=== PATIENT | female | born 1960 | race Two or more races ===

== ENCOUNTER 2020-03-27 02:08 | Emergency (ER) | payer MEDICAID ==
[~2020-03-27] VITALS: Ht 165.1 cm; Wt 63.5 kg
[~2020-03-27 02:08] MED LIST: ATOR40TA52 PO; BUSP10TA90 PO; CHOL4POW4 PO; DIPH-452 PO; SERT-160 PO
[2020-03-27] MEDS ORDERED: SODIUM CHLORIDE 0.9% 2,000 ML IV ONE (02:30)
[2020-03-27 02:43] LABS: Basophils # (auto) 0 10 ^3/uL (0-0.2); Basophils % (auto) 0.5 % (0.0-2.0); Eosinophils # (auto) 0.2 10 ^3/uL (0-0.8); Eosinophils % (auto) 2.5 % (0.0-7.0); Hematocrit 36.1 % (36.0-46.0); Lymphocytes # (auto) 2.4 10 ^3/uL (0.4-5.4); Lymphocytes % (auto) 36.1 % (10.0-50.0); Mean Corpuscular Hemoglobin 32.7 pg (28.0-32.0); Mean Corpuscular Hgb Conc. 33.3 g/dL (32.0-36.0); Mean Corpuscular Volume 98.3 fL (80.0-100.0); Monocytes # (auto) 0.6 10 ^3/uL (0-1.3); Monocytes % (auto) 8.9 % (0.0-12.0); Neutrophils # (auto) 3.5 10 ^3/uL (1.6-8.6); Nucleated Red Blood Cells % 0.1 %; Platelet Count (auto) 168 10^3/uL (140-450); Red Blood Cells 3.67 10^6/uL (4.0-5.20); Red Cell Distribution Width 13.8 % (11.8-14.3); White Blood Cell 6.7 10^3/uL (4.4-10.8)
[2020-03-27 03:00] LABS: Alanine Aminotransferase 294 U/L (13-56); Albumin 2.3 g/dL (3.4-5.0); Anion Gap 9 (5-15); Aspartate Aminotransferase 837 U/L (15-37); BUN/Creatinine Ratio 15.9; Blood Urea Nitrogen 10 mg/dL (7-18); Carbon Dioxide 17 mmol/L (21-32); Chloride 120 mmol/L (98-107); GFR African American 124 mL/min; GFR Non-African American 102 mL/min; Glucose 80 mg/dL (74-106); Magnesium 1.5 mg/dL (1.6-2.6); Sodium 146 mmol/L (136-145)
[2020-03-27 03:05] LABS: Alkaline Phosphatase 101 U/L (45-117); Bilirubin, Total 0.7 mg/dL (0.2-1.0); Total Protein 4.6 g/dL (6.4-8.2)
[2020-03-27 03:09] LABS: Calcium 5.7 mg/dL (8.5-10.1); Potassium 2.5 mmol/L (3.5-5.1)
[2020-03-27] MEDS ORDERED: POTASSIUM EFFERVESENT TAB 25 MEQ PO ONE (03:15)
[2020-03-27] MEDS ORDERED: POTASSIUM CHL 20MEQ/100ML 100 ML IV ONE (03:15)
[2020-03-27] MEDS ORDERED: THIAMINE 100mg/ml INJ (200mg/2ml VIAL) IV ONE (03:15)
[2020-03-27] MEDS ORDERED: SODIUM CHLORIDE 0.9% 1,000 ML IV ONE (03:15)
[2020-03-27 04:10] LABS: Amphetamine Screen, Urine NEGATIVE (NEGATIVE); Barbiturate Scree,Urine NEGATIVE (NEGATIVE); Benzodiazephine Screen, Urine NEGATIVE (NEGATIVE); Cannabinoid Screen, Urine NEGATIVE (NEGATIVE); Cocaine Screen, Urine NEGATIVE (NEGATIVE); Opiate Scree,Urine NEGATIVE (NEGATIVE); Phencyclidine Screen, Urine NEGATIVE (NEGATIVE)
[2020-03-27 04:42] LABS: Urine Bacteria FEW /hpf (None Seen); Urine Blood Negative /uL (Negative); Urine Specific Gravity 1.004 (1.001-1.035); Urine WBC <1 /hpf (0 - 5)
[2020-03-27] MEDS ORDERED: CALCIUM CHL 100MG/ML 1,000 MG in D5W 5% 100 ML IV ONE (05:00)
[2020-03-27] MEDS ORDERED: CALCIUM CHLOR(10%) 100MG/ML 10ML SYRINGE IV ONE (06:31)
[2020-03-27 08:14] VITALS: BP 122/63
== END 2020-03-27 08:54 | disposition home or self-care (01) ==
LOC: EDBD 02:08 → ER 02:08
DX: K58.0 Irritable bowel syndrome with diarrhea (principal); E87.6 Hypokalemia; R55 Syncope and collapse; F10.129 Alcohol abuse with intoxication, unspecified; K90.9 Intestinal malabsorption, unspecified; Y90.6 Blood alcohol level of 120-199 mg/100 ml
CPT/HCPCS: 36415; 71045; 80053; 80307; 80320; 81001; 83735; 83880; 84443; 84484; 85025; 96361; 96365; 96366; 96367; 96375; 99285; J3411; J3480; J7030; 93005; 96368; J7060

== ENCOUNTER 2020-10-01 12:15 | Outpatient (CLI) | payer MEDICAID ==
[~2020-10-01] VITALS: Ht 30.5 cm; Wt 59.9 kg
[2020-10-01] VITALS (7 sets, daily range): BP systolic 146–162; BP diastolic 79–87
[2020-10-01] MEDS ORDERED: BAMLANIVIMAB 700MG/200ML 200 ML IV ONE (12:30)
== END 2020-10-01 15:15 | disposition home or self-care (01) ==
LOC: ER 12:15
PROVIDERS: ATTEND Internal Medicine
DX: Z23 Encounter for immunization (principal); U07.1 COVID-19; E87.6 Hypokalemia
CPT/HCPCS: M0239; Q0239